=== PATIENT | male | born 2000 | race Two or more races ===

== ENCOUNTER 2023-12-14 15:00 | Inpatient (IN) | payer OTHER ==
[2023-12-14 15:55] VITALS: BMI 27.6
[2023-12-14] MEDS ORDERED: MAG HYDROX/AL HYDROX/SIMETH 30 ML UNIT-DOSE CUP PO PRN (16:15)
[2023-12-14] MEDS ORDERED: NALOXONE HCL (KLOXXADO) 8 MG SPRAY NS PRN (16:15)
[2023-12-14] MEDS ORDERED: IBUPROFEN 600 MG TABLET (FP) PO PRN (16:15)
[2023-12-14] MEDS ORDERED: POLYETHYLENE GLYCOL (HEALTHYLAX) 3350 17 GM PACKET PO PRN (16:15)
[2023-12-14] MEDS ORDERED: ACETAMINOPHEN 325 MG TABLET (FP) PO PRN (16:15)
[2023-12-14] MEDS ORDERED: BENZOCAINE/MENTHOL (CHLORASEPTIC ) LOZENGE MM PRN (16:15)
[2023-12-14] MEDS ORDERED: guaiFENesin 600 MG TABLET.ER (FP) PO PRN (16:15)
[2023-12-14] MEDS ORDERED: DICYCLOMINE HCL 10 MG CAPSULE PO PRN (16:15)
[2023-12-14] MEDS ORDERED: ONDANSETRON *ODT* 4 MG TABLET SL PRN (16:15)
[2023-12-14] MEDS ORDERED: BISMUTH SUBSALICYLATE 524 MG/30 ML PO PRN (16:15)
[2023-12-14] MEDS ORDERED: IBUPROFEN 400 MG TABLET (FP) PO PRN (16:15)
[2023-12-14] MEDS ORDERED: NALOXONE HCL 0.4 MG/ML VIAL IM PRN (16:15)
[2023-12-14] MEDS ORDERED: MAGNESIUM HYDROX 2400MG/30ML ORAL SUSPENSION 30 ML CUP PO PRN (16:15)
[2023-12-14] MEDS ORDERED: LOPERAMIDE HCL 2 MG CAPSULE PO PRN (16:15)
[2023-12-14] MEDS ORDERED: BENZONATATE 200 MG CAPSULE PO PRN (16:15)
[2023-12-14] MEDS ORDERED: methaDONE HCL 10 MG TABLET (FOR DETOX USE ONLY) ONE (16:34)
[2023-12-14] MEDS ORDERED: hydrOXYzine PAMOATE 25 MG CAPSULE (FP) PO ONE (16:34)
[2023-12-14] MEDS ORDERED: PRENATAL VITAMINS W/ FOLIC ACID TABLET (FP) PO ONE (16:34)
[2023-12-14] MEDS: PRENATAL VITAMINS W/ FOLIC ACID TABLET (FP) PO SCH (16:35)
[2023-12-14] MEDS: methaDONE HCL 10 MG TABLET (FOR DETOX USE ONLY) PO ONE (16:35)
[2023-12-14] MEDS: hydrOXYzine PAMOATE 25 MG CAPSULE (FP) PO PRN (16:35)
[2023-12-14] MEDS: cloNIDine HCL 0.1 MG TABLET PO SCH (18:11)
[2023-12-14] MEDS: MELATONIN 5 MG TABLETS PO SCH (22:22)
[2023-12-14] MEDS: THIAMINE 100 MG TABLET PO SCH (22:22)
[2023-12-14] MEDS: BUPRENORPHINE/NALOXONE 0.5 MG/0.125 MG FILM SL ONE (22:24)
[2023-12-14] MEDS: METHOCARBAMOL 500 MG TABLET PO PRN (22:24)
[2023-12-15] MEDS: BUPRENORPHINE/NALOXONE 0.5 MG/0.125 MG FILM SL SCH (10:36)
[2023-12-15 11:55] LABS: HEMATOCRIT 43.2 % (35.4-49); HEMOGLOBIN 14.4 GM/dL (11.7-16.9); MCH 30.1 pg (25.7-33.7); MCHC 33.5 g/dl (32.0-35.9); MEAN CELL VOLUME 89.9 fl (80-96); MEAN PLT VOLUME 8.6 fl (7.5-11.1); PLATELET COUNT 278 10^3/uL (134-434); RDW 13.1 % (11.9-15.9); WHITE BLOOD COUNT 6.6 K/mm3 (4.0-10.0)
[2023-12-15 11:57] LABS: POTASSIUM 3.8 mmol/L (3.5-5.1)
[2023-12-15 11:58] LABS: CALCIUM 9.5 mg/dL (8.5-10.1)
[2023-12-15 11:59] LABS: BLOOD UREA NITROGEN 12.2 mg/dL (7-18)
[2023-12-15 12:02] LABS: CREATININE 0.9 mg/dL (0.55-1.3)
[2023-12-15 12:03] LABS: TOT PROT 7.6 g/dl (6.4-8.2)
[2023-12-15 12:04] LABS: BILIRUBIN,TOTAL 0.7 mg/dL (0.2-1)
[2023-12-16] MEDS: BUPRENORPHINE/NALOXONE 2 MG/0.5 MG FILM PACKET SL SCH (10:40)
[2023-12-16] MEDS: methaDONE HCL 10 MG TABLET (FOR DETOX USE ONLY) PO ONE (10:40)
[2023-12-17] MEDS: BUPRENORPHINE/NALOXONE 4 MG/1 MG FILM PACKET SL SCH (10:45)
[2023-12-18] MEDS: methaDONE HCL 10 MG TABLET (FOR DETOX USE ONLY) PO ONE (09:37)
[2023-12-18] MEDS: BUPRENORPHINE/NALOXONE 8 MG/2 MG FILM PACKET SL SCH (09:38)
[2023-12-18 10:04] VITALS: BP 145/67; PULSE 87; RESP 16; TEMP 97.7
[2023-12-19] MEDS ORDERED: BUPRENORPHINE/NALOXONE 8 MG/2 MG FILM PACKET SL SCH (10:00)
== END 2023-12-18 11:25 | disposition home or self-care (01) | DRG 773 ==
LOC: YASAS 15:00 → Y6N 17:07
PROVIDERS: ADMIT Allergy & Immunology; ATTEND Surgery
PROC: HZ2ZZZZ Detoxification Services for Substance Abuse Treatment (ICD-10-PCS; principal; 2023-12-14)
DX: F11.23 Opioid dependence with withdrawal (principal); Z51.81 Encounter for therapeutic drug level monitoring
CPT/HCPCS: 36415; 80053; 80305; 85027; 86780; 93005; 93010